=== PATIENT | female | born 1980 | race Asian ===

== ENCOUNTER 2016-11-26 01:47 | Inpatient (IN) | payer SELFPAY ==
[~2016-11-26] VITALS: Ht 172.7 cm; Wt 65.8 kg
[2016-11-26] MEDS ORDERED: LACTATED RINGERS 1,000 ML IV SCH (02:14)
[2016-11-26] MEDS ORDERED: OXYTOCIN 20 UNITS/LR PREMIX 1,000 ML IV SCH (02:15)
[2016-11-26] MEDS ORDERED: PROMETHAZINE 25 MG/ML VIAL IVP PRN (02:15)
[2016-11-26] MEDS ORDERED: OXYTOCIN 10 UNITS/ML VIAL IM SCH (02:15)
[2016-11-26] MEDS ORDERED: NALBUPHINE HYDROCHLORIDE 10 MG/ML VIAL IVP PRN (02:15)
[2016-11-26 02:36] LABS: BASOPHILS # (AUTO) 0.4 K/uL (0.00-0.22); BASOPHILS % (AUTO) 3.1 % (0.0-2.0); EOSINOPHILS # (AUTO) 0.2 K/uL (0-0.4); EOSINOPHILS % (AUTO) 1.3 % (0.0-4.0); HEMATOCRIT 42.5 % (36-48); HEMOGLOBIN 14.5 g/dL (12.0-16.0); LYMPHOCYTES # (AUTO) 1.3 K/uL (2.5-16.5); MEAN CORPUSCULAR HEMOGLOBIN 33 pg (27-31); MEAN CORPUSCULAR HGB CONC 34 g/dL (33-37); MEAN CORPUSCULAR VOLUME 97 fL (80-94); MONOCYTES # (AUTO) 0.5 K/uL (0.8-1.0); MONOCYTES % (AUTO) 3.7 % (1.7-9.3); NEUTROPHILS # (AUTO) 11.6 K/uL (1.8-7.7); NEUTROPHILS % (AUTO) 82.8 % (42.2-75.2); PLATELET COUNT (AUTO) 189 K/uL (140-450); RED BLOOD CELL COUNT(AUTO) 4.39 MIL/uL (4.20-5.40); RED CELL DISTRIBUTION WIDTH 13.9 % (11.6-13.7)
[2016-11-26 02:38] LABS: APPEARANCE,URINE SL CLOUDY (CLEAR); BILIRUBIN,URINE NEGATIVE (NEGATIVE); BLOOD, URINE 3+ (NEGATIVE); COLOR,URINE YELLOW (YELLOW); LEUKOCYTE ESTERASE ,URINE NEGATIVE (NEGATIVE); NITRITE, URINE NEGATIVE (NEGATIVE); PROTEIN,URINE NEGATIVE (NEGATIVE); UGLUCOSE NEGATIVE (NEGATIVE); UROBILINOGEN,URINE 0.2 EU/dL (0.2 - 1)
[2016-11-26 03:29] VITALS: BP 119/60
[2016-11-26] MEDS ORDERED: INFLUENZA VIRUS VACCINE QUAD 0.5 ML SYR IMVAC SCH (03:35)
[2016-11-26] MEDS ORDERED: FERR-193 PO (03:36)
[2016-11-26] MEDS ORDERED: PREN-546 PO (03:36)
[2016-11-26 04:00] LABS: LYMPHOCYTES % (AUTO) 9.1 % (20.5-51.1)
[2016-11-26 04:01] LABS: BACTERIA,URINE FEW /HPF (None Seen); WBC,URINE 0-5 (RARE) /HPF (0-5)
[2016-11-26] MEDS ORDERED: NALBUPHINE HYDROCHLORIDE 10 MG/ML VIAL ONE (04:32)
[2016-11-26] MEDS ORDERED: PROMETHAZINE 25 MG/ML VIAL ONE (04:32)
[2016-11-26] MEDS ORDERED: LIDOCAINE 1% 500 MG/50 ML VIAL INJ SCH (04:40)
[2016-11-26] MEDS ORDERED: OXYTOCIN 10 UNITS/ML VIAL ONE (04:42)
[2016-11-26] MEDS ORDERED: OXYTOCIN 20 UNITS/LR PREMIX 1,000 ML IV ONE (04:42)
[2016-11-26] MEDS ORDERED: LIDOCAINE 1% 0 ML ONE (04:42)
[2016-11-26] MEDS ORDERED: BUPIVACAINE 0.125%/NS PREMIX 250 ML ONE (05:22)
--- NOTE | 2016-11-26 07:45 | NUR ---
PATIENT HAS BEEN SCREENED AND CATEGORIZED LOW NUTRITION RISK. PATIENT WILL BE SEEN WITHIN 7 DAYS OF ADMISSION. 12/02/[address]
[2016-11-26] MEDS ORDERED: MEASLES, MUMPS, AND RUBELLA 1 VIAL SQVAC PRN (19:55)
[2016-11-26] MEDS ORDERED: SODIUM PHOSPHATE 118 ML ENEM RC PRN (19:55)
[2016-11-26] MEDS ORDERED: BENZOCAINE/MENTHOL 20%-0.5% 60 GM CAN TP PRN (19:55)
[2016-11-26] MEDS ORDERED: WITCH HAZEL 40 PAD PACKAGE TP PRN (19:55)
[2016-11-26] MEDS ORDERED: oxyCODONE/APAP 5/325 MG 1 TAB TAB PO PRN (19:55)
[2016-11-26] MEDS ORDERED: METHYLERGONOVINE 0.2 MG/ML AMP IM PRN (19:55)
[2016-11-26] MEDS ORDERED: TEMAZEPAM 15 MG CAP PO PRN (19:55)
[2016-11-26] MEDS ORDERED: DOCUSATE SOD/SENNA 50/8.6 MG 1 TAB PO SCH (21:00)
[2016-11-26] MEDS: HYDROcodone/APAP 5/325 MG 1 TAB TAB PO PRN (21:46)
[2016-11-27] MEDS: HYDROcodone/APAP 5/325 MG 1 TAB TAB PO PRN ×2 (01:27→20:46)
[2016-11-27 06:35] LABS: HEMOGLOBIN 11.2 g/dL (12.0-16.0)
[2016-11-28] MEDS: HYDROcodone/APAP 5/325 MG 1 TAB TAB PO PRN ×2 (01:11→05:51)
[2016-11-28] MEDS ORDERED: IBUP800T99 PO ×2 (10:48→11:01)
== END 2016-11-28 16:40 | disposition home or self-care (01) | DRG 775 ==
LOC: MFCC 01:47
PROVIDERS: ADMIT Obstetrics & Gynecology; ATTEND Obstetrics & Gynecology
PROC: 10E0XZZ Delivery of Products of Conception, External Approach (ICD-10-PCS; principal; 2016-11-26)
PROC: 0KQM0ZZ Repair Perineum Muscle, Open Approach (ICD-10-PCS; 2016-11-26)
PROC: 10907ZC Drainage of Amniotic Fluid, Therapeutic from Products of Conception, Via Natural or Artificial Opening (ICD-10-PCS; 2016-11-26)
PROC: 00HU33Z Insertion of Infusion Device into Spinal Canal, Percutaneous Approach (ICD-10-PCS; 2016-11-26)
PROC: 3E0R3CZ (ICD-10-PCS; 2016-11-26)
PROC: 3E0234Z Introduction of Serum, Toxoid and Vaccine into Muscle, Percutaneous Approach (ICD-10-PCS; 2016-11-28)
DX: O77.0 Labor and delivery complicated by meconium in amniotic fluid (principal); O75.89 Other specified complications of labor and delivery; O69.1XX0 Labor and delivery complicated by cord around neck, with compression, not applicable or unspecified; O70.1 Second degree perineal laceration during delivery; Z3A.39 39 weeks gestation of pregnancy; Z37.0 Single live birth; O09.523 Supervision of elderly multigravida, third trimester; Z23 Encounter for immunization
CPT/HCPCS: 36415; 51702; 59409; 81001; 85018; 85025; 86592; 86886; 86900; 86901; 90658; 90715; J2001; J2300; J2550; J2590; J3490; J7120